=== PATIENT | female | born 1975 | race Caucasian/White ===

== ENCOUNTER 2017-07-18 03:20 | Emergency (ER) | payer SELFPAY ==
[~2017-07-18] VITALS: Ht 157.5 cm; Wt 72.1 kg
[~2017-07-18 03:20] MED LIST: Monodox100 MG PO; Mucinex600 MG PO; Ventolin/Prove6.7 GM INH
[2017-07-18] MEDS ORDERED: ERYT1OIN BOTHEYES (04:46)
== END 2017-07-18 05:01 | disposition home or self-care (01) ==
LOC: ER 03:20
DX: S05.02XA Injury of conjunctiva and corneal abrasion without foreign body, left eye, initial encounter (principal); X58.XXXA Exposure to other specified factors, initial encounter; Z87.891 Personal history of nicotine dependence
CPT/HCPCS: 99283

== ENCOUNTER 2017-09-26 11:03 | Emergency (ER) | payer SELFPAY ==
[~2017-09-26] VITALS: Ht 157.5 cm; Wt 72.6 kg
[~2017-09-26 11:03] MED LIST changes: +ERYT1OIN BOTHEYES
[2017-09-26] MEDS ORDERED: Ciloxan5 ML RIGHTEYE (11:51)
[2017-09-26] MEDS ORDERED: Ocuflox5 ML RIGHTEYE (12:15)
== END 2017-09-26 12:29 | disposition home or self-care (01) ==
LOC: ER 11:03
DX: S05.01XA Injury of conjunctiva and corneal abrasion without foreign body, right eye, initial encounter (principal); X58.XXXA Exposure to other specified factors, initial encounter; Y99.0 Civilian activity done for income or pay; Z87.891 Personal history of nicotine dependence
CPT/HCPCS: 99283

== ENCOUNTER 2023-08-19 14:39 | Emergency (ER) | payer OTHER ==
[~2023-08-19] VITALS: Ht 157.5 cm; Wt 70.3 kg
[~2023-08-19 14:39] MED LIST changes: +Ciloxan5 ML RIGHTEYE; +Ocuflox5 ML RIGHTEYE
[2023-08-19] MEDS ORDERED: Ondansetron HCl 2 MG / ML 2ML Vial IV ONE (15:15)
[2023-08-19] MEDS ORDERED: Ketorolac Tromethamine 30mg Vial IV ONE (15:15)
[2023-08-19] MEDS ORDERED: Morphine Sulfate 4 MG/1 ML Injection IV ONE (16:25)
[2023-08-19] MEDS ORDERED: IBUP600 PO (17:03)
[2023-08-19] MEDS ORDERED: HYDROCODONE-AC1 EA10 PO (17:03)
[2023-08-19 17:24] VITALS: BP 117/85
== END 2023-08-19 17:43 | disposition home or self-care (01) ==
LOC: ER 14:39
DX: S42.201A Unspecified fracture of upper end of right humerus, initial encounter for closed fracture (principal); W18.30XA Fall on same level, unspecified, initial encounter; Z87.891 Personal history of nicotine dependence
CPT/HCPCS: 73030; 73060; 73070; 96374; 96375; 99284-25; J1885; J2270; J2405